=== PATIENT | female | born 1940 | race Caucasian/White ===

== ENCOUNTER 2023-09-28 10:42 | Emergency (ER) | payer MEDICARE, SELFPAY ==
[2023-09-28 10:54] VITALS: BP 112/57
[2023-09-28 11:23] VITALS: BMI 24.0
--- NOTE | 2023-09-28 11:53 | ED.SKININJ ---
HPI-Injury
General
Chief Complaint: Skin Problem
Source: patient
Exam Limitations: none
Time Seen by Provider: 09/28/23 11:36
History of Present Illness-Injury
Initial Injury comments:
83-year-old female presents for evaluation of wounds on the right hand as well as the left buttock. She scraped her hand while getting out of her wheelchair and suffered a skin tear 2 weeks ago. Her has been managing the wound. She also
notes an ongoing wound for about the similar period of time to the left buttock. She is a key-srobeyc-metflddvn diabetic. She is not anticoagulated. Denies a fever. No other complaints at this time
Past History
Past History
ED Past Medical History: HTN, Hypercholesterolemia, NIDDM, Other (RA on methotrexate) and Other (DVT)
ED Past Surgical History: Gynecological (bladder sling)
Social History
Tobacco: Non-smoker
Alcohol: None
Drug: None
Personal:
Living: with family
Phy Exam
Physical Exam
Physical Exam:
General: Well-appearing nontoxic female no acute respiratory distress
HEENT: Normocephalic atraumatic neck is supple
Skin: Skin tear noticed dorsal aspect right hand measuring about 3 cm x 6 cm. There epithelialization occurring at the base of the wound. No surrounding erythema or drainage. No foul odor.
There is a 2 x 2 centimeter superficial wound to the left buttock that is dry. No surrounding erythema nontender no drainage
Extremities: No cyanosis or edema.
Course
Vital Signs
Initial and Last Documented VS:
Initial Vital Signs
Temp Pulse Resp BP Pulse Ox
98.2 F 64 16 112/57 99
09/28/23 10:54 09/28/23 10:54 09/28/23 10:54 09/28/23 10:54 09/28/23 10:54
Last Documented Vital Signs
Temp Pulse Resp BP Pulse Ox
98.2 F 64 16 112/57 99
09/28/23 10:54 09/28/23 10:54 09/28/23 10:54 09/28/23 10:54 09/28/23 10:54
MDM/Problems Addressed
Differential Diagnosis Includes:
Skin tear right dorsal hand looks well without infection no need for any oral antibiotics. Wound care instructions were given. Stage I ulcer left buttock no surrounding erythema this is dry. Wound care instructions were again given. Patient was
advised to follow-up wound care center here. Stable for discharge
*Critical Care Note
Total Time (30-74mins, 75-104mins- exclusive of procedures): Not Applicable
ED Attending Note
-
Portions of this chart may have been created with voice recognition software.� Occasional wrong word or��sound alike� substitutions may have occurred due to the inherent limitations of voice recognition software.
Discharge Plan
Departure
Patient Disposition: Home (Routine Discharge)
Date of Disposition: 09/28/23
Time of Disposition: 12:03
Patient with high blood pressure during this ER visit?: No
Discharge Problem:
Skin tear
Instructions: Wound Care (DC)
Prescriptions:
No Action
trospium 60 MG capsule,extended release 24hr
60 mg PO DAILY
alendronate 70 MG tablet
70 mg PO MO@0700
atorvastatin 20 mg tablet
20 mg PO HS
metoprolol succinate [Toprol XL] 50 mg tablet extended release 24 hr
50 mg PO HS
amiodarone [Pacerone] 200 mg tablet
200 mg PO DAILY Qty: 30 0RF
Eliquis 5 MG tablet
5 mg PO BID Qty: 30 0RF
Patient Comments:
multivitamin Tablet
1 tab PO DAILY
calcium carbonate [Calcium 600] 600 mg calcium (1,500 mg) Tablet
600 mg PO DAILY
ferrous sulfate 325 mg (65 mg iron) Tablet
325 mg PO DAILY
folic acid 1 mg Tablet
1 mg PO BID
triamcinolone acetonide 0.1 % cream
1 applic topical DAILY PRN (Reason: Redness)
fluconazole 150 mg Tablet
150 mg PO Q3D
acetaminophen 325 mg capsule
650 mg PO Q6H PRN (Reason: pain) Qty: 1 0RF
tramadol 50 mg tablet
50 mg PO TID PRN (Reason: severe pain) Qty: 10 0RF
Referrals:
[facility] [[facility] -
Activity Restrictions/Additional Instructions:
Change dressing daily. Please return if worse otherwise follow-up with wound care center.
Interventions
Interventions:
*Risk Screen - Suicide Last Done: 09/28/23 10:54
*General Assessment Last Done: 09/28/23 10:54
*Neglect/Abuse Screening Last Done: 09/28/23 10:54
ED- Fall Risk Assessment Last Done: 09/28/23 11:46
*ED COVID-19 Vaccine History Last Done: 09/28/23 11:24
*Nursing Disposition Last Done: 09/28/23 12:24
ED-Skin Assessment Last Done: 09/28/23 11:45
Discharge Date and Time
Discharge Date/Time: 09/28/23 12:24
Print Language: GIBRALTARIAN
== END 2023-09-28 12:24 | disposition home or self-care (01) ==
LOC: EMR 10:42
PROVIDERS: EMERGENCY PHYSICIAN Emergency Medicine; FAMILY PHYSICIAN Family Medicine
DX: S61.411A Laceration without foreign body of right hand, initial encounter (principal); X58.XXXA Exposure to other specified factors, initial encounter; I10 Essential (primary) hypertension; E78.00 Pure hypercholesterolemia, unspecified; M06.9 Rheumatoid arthritis, unspecified; Z86.718 Personal history of other venous thrombosis and embolism
CPT/HCPCS: 99282